=== PATIENT | female | born 1980 | race Caucasian/White ===

== ENCOUNTER 2019-07-23 06:27 | Inpatient (IN) | payer OTHER ==
[~2019-07-23] VITALS: Ht 162.6 cm; Wt 96.2 kg
[~2019-07-23 06:27] MED LIST: PRENATAL TABLE1 EAC1 PO
[2019-07-23] MEDS ORDERED: VITAMIN C100 MG (11:04)
== END 2019-07-25 12:41 | disposition home or self-care (01) | DRG 807 ==
LOC: LDR 06:27 → OB/GYN 06:27 → LDR 06:49 → OB/GYN 16:20
PROVIDERS: ADMIT Obstetrics & Gynecology
PROC: 10E0XZZ Delivery of Products of Conception, External Approach (ICD-10-PCS; principal; 2019-07-23)
PROC: 3E033VJ Introduction of Other Hormone into Peripheral Vein, Percutaneous Approach (ICD-10-PCS; 2019-07-23)
PROC: 4A1HXCZ Monitoring of Products of Conception, Cardiac Rate, External Approach (ICD-10-PCS; 2019-07-23)
DX: O80 Encounter for full-term uncomplicated delivery (principal); Z37.0 Single live birth; Z3A.38 38 weeks gestation of pregnancy